=== PATIENT | male | born 1955 | race Caucasian/White ===

== ENCOUNTER 2021-01-04 14:49 | Emergency (ER) | payer BC, OTHER ==
[~2021-01-04] VITALS: Ht 188 cm; Wt 104.3 kg
[2021-01-04 17:05] LABS: BASOPHILS 0.4 % (0.0-2.0); EOSINOPHILS 1.8 % (0.0-3.0); HEMATOCRIT 46.5 % (42.0-52.0); HEMOGLOBIN 16.3 gm/dL (14.0-18.0); LYMPHOCYTES 26.7 % (24.0-44.0); MCH 31.4 pg (26.0-34.0); MCV 89.5 fL (80.0-100.0); MONOCYTES 9.5 % (1.0-8.0); PLATELET COUNT 245 thou/uL (150-400); POLYS 61.6 % (36.0-66.0); RDW 12.8 % (10.5-14.5); WBC 9.8 thou/uL (4.0-11.0)
[2021-01-04 17:11] LABS: ANION GAP 10 mmol/L (7-16); BUN 19 mg/dL (7-18); CHLORIDE 107 mmol/L (98-107); CO2 26 mmol/L (21-32); CREATININE 0.9 mg/dL (0.7-1.3); GLUCOSE 90 mg/dL (74-106); POTASSIUM 4.5 mmol/L (3.5-5.1); SODIUM 143 mmol/L (136-145)
[2021-01-04 17:21] LABS: ALBUMIN 3.9 g/dL (3.4-5.0); SGOT 22 U/L (15-37); SGPT 34 U/L (16-63); TOTAL BILIRUBIN 0.4 mg/dL (0.2-1.0); TOTAL PROTEIN 7.2 g/dL (6.4-8.2); TROPONIN-I <0.06 ng/mL (<0.06)
[2021-01-04] MEDS ORDERED: MECLIZINE HCL25 M1 PO (17:55)
[2021-01-04 18:11] VITALS: BP 145/92
--- NOTE | 2021-01-05 07:25 | EKG ---
[address] [address] [place] [address] ELECTROCARDIOGRAM REPORT Name: RENETTA QUARLES [facility] [id number] Admission: 01/04/21 Attend Phys: Discharge: 01/04/21 Date of : 55 Report #: [id number] [facility] ED Test Date: 2021-01-04 Test Time: 14:57:08 Pat Name: RENETTA QUARLES Department: Room: Gender: [employer] Supervisor: lamar : 1955 Requested By: Berna Powers Order Number: [id number] MD: Vega Hu Measurements Intervals [place] Rate: 87 P: 23 ME: 177 QRS: -19 QRSD: 95 T: 57 QT: 331 QTc: 398 Interpretive Statements Sinus rhythm Borderline left axis deviation Low voltage, precordial leads Borderline T wave abnormalities No previous ECG available for comparison Electronically Signed On 01-05-2021 7:25:19 CDT by Vega Hu [email or web address] <ELECTRONICALLY SIGNED> By: Vega Hu MD, [facility] 01/05/21 0725 1457 1457 Vega Hu MD, FACC /EPI
== END 2021-01-04 18:13 | disposition home or self-care (01) ==
LOC: ER 14:49
PROVIDERS: Emergency Medicine
DX: R42 Dizziness and giddiness (principal)

== ENCOUNTER 2021-05-07 07:30 | Emergency (ER) | payer BC, OTHER ==
[~2021-05-07] VITALS: Ht 188 cm; Wt 104.3 kg
[~2021-05-07 07:30] MED LIST: MECLIZINE HCL25 M1 PO
[2021-05-07 08:10] LABS: ABSOLUTE NEUTROPHILS 7.8 thou/uL (1.4-8.2); BASOPHILS 0.4 % (0.0-2.0); EOSINOPHILS 0.6 % (0.0-3.0); HEMATOCRIT 45.4 % (42.0-52.0); HEMOGLOBIN 15.6 gm/dL (14.0-18.0); LYMPHOCYTES 21.6 % (24.0-44.0); MCH 30.8 pg (26.0-34.0); MCHC 34.3 g/dL (28.0-37.0); MCV 89.7 fL (80.0-100.0); MONOCYTES 8.5 % (1.0-8.0); PLATELET COUNT 249 thou/uL (150-400); POLYS 68.9 % (36.0-66.0); RBC 5.06 mil/uL (4.50-6.00); RDW 12.7 % (10.5-14.5); WBC 11.4 thou/uL (4.0-11.0)
[2021-05-07 08:25] LABS: CALCIUM 9.1 mg/dL (8.5-10.1); CREATININE 1.2 mg/dL (0.7-1.3); POTASSIUM 3.7 mmol/L (3.5-5.1)
[2021-05-07] MEDS ORDERED: XANAX 0.5 MG0.5 MG PO (10:38)
[2021-05-07] MEDS ORDERED: ZOFRAN ODT4 MG PO (10:38)
[2021-05-07 11:15] VITALS: BP 111/55
--- NOTE | 2021-05-08 09:50 | EKG ---
[facility] [place] [address] ELECTROCARDIOGRAM REPORT Name: ROBINATAMIARENETTA P [facility] [id number] Admission: 05/07/21 Attend Phys: Discharge: 05/07/21 Date of : 55 Report #: [id number] [facility] ED Test Date: 2021-05-07 Test Time: 07:50:22 Pat Name: RENETTA QUARLES Department: Room: Gender: Patient Accounts Specialist: RONEL : 1955 Requested By: Zachariah Ochoa Order Number: [id number] MD: Gary Jaffe Measurements Intervals [place] Rate: 99 P: 54 KS: 233 QRS: 32 QRSD: 102 T: 120 QT: 328 QTc: 421 Interpretive Statements Marked artifact limits interpretation Probable sinus rhythm Ventricular premature complex Poor R-wave progression Compared to ECG 01/04/2021 14:57:08 Ventricular premature complex(es) now present Unable to compare ST and T wave segments Electronically Signed On 05-08-2021 9:50:17 MOLDER by Gary Jaffe [email or web address] <ELECTRONICALLY SIGNED> By: Gary Jaffe MD, [facility] 05/08/21 0950 0750 0750 Gary Jaffe MD, [facility] /EPI
== END 2021-05-07 20:22 | disposition home or self-care (01) ==
LOC: ER 07:30
PROVIDERS: Emergency Medicine
DX: F10.10 Alcohol abuse, uncomplicated (principal); F32.9 Major depressive disorder, single episode, unspecified; F17.200 Nicotine dependence, unspecified, uncomplicated; Z79.899 Other long term (current) drug therapy